=== PATIENT | male | born 2000 | race Hispanic/Latino ===

== ENCOUNTER 2021-03-03 08:28 | Emergency (ER) | payer SELFPAY ==
[2021-03-03] MEDS ORDERED: EPINEPHrine 1 MG/10 ML Abboject SYRINGE ONE (10:37)
[2021-03-03] MEDS ORDERED: Lidocaine 1% 20 ML MDV ONE (10:37)
[2021-03-03] MEDS ORDERED: Triple Antibiotic Oint 1 GM Packet ONE (12:30)
== END 2021-03-03 12:50 | disposition home or self-care (01) ==
LOC: MADERS 08:28
DX: S62.631A Displaced fracture of distal phalanx of left index finger, initial encounter for closed fracture (principal); S61.211A Laceration without foreign body of left index finger without damage to nail, initial encounter; J30.2 Other seasonal allergic rhinitis; Z79.899 Other long term (current) drug therapy; W22.8XXA Striking against or struck by other objects, initial encounter
CPT/HCPCS: 11730; J0171

== ENCOUNTER 2021-12-13 10:33 | Emergency (ER) | payer OTHER ==
[2021-12-13] MEDS ORDERED: Boostrix 0.5 ML (Tdap) VIAL ONE (10:57)
[2021-12-13] MEDS ORDERED: Ibuprofen 800 MG TAB ONE (10:57)
[2021-12-13] MEDS ORDERED: Lidocaine 1% (PF) 30 ML VIAL ONE (10:57)
[2021-12-13] MEDS ORDERED: Bacitracin 1 PK ONE (10:57)
[2021-12-13] MEDS ORDERED: Cephalexin 500 MG CAP ONE (10:57)
== END 2021-12-13 11:49 | disposition home or self-care (01) ==
LOC: MADERS 10:33
DX: S67.196A Crushing injury of right little finger, initial encounter (principal); S61.226A Laceration with foreign body of right little finger without damage to nail, initial encounter; W23.0XXA Caught, crushed, jammed, or pinched between moving objects, initial encounter; Y92.69 Other specified industrial and construction area as the place of occurrence of the external cause; Z23 Encounter for immunization
CPT/HCPCS: 12001; 90471; 90715; J2001

== ENCOUNTER 2021-12-24 15:21 | Emergency (ER) | payer MEDICAID, SELFPAY | END 2021-12-24 16:15 | disposition home or self-care (01) | LOC: MADERS 15:21 | DX: T81.30XA Disruption of wound, unspecified, initial encounter (principal); S61.217D Laceration without foreign body of left little finger without damage to nail, subsequent encounter ==

== ENCOUNTER 2023-05-08 03:28 | Emergency (ER) | payer MEDICAID, SELFPAY ==
[2023-05-08] MEDS ORDERED: Ondansetron ODT 4 MG TAB ONE (04:01)
== END 2023-05-08 04:26 | disposition home or self-care (01) ==
LOC: MADERS 03:28
DX: K52.9 Noninfective gastroenteritis and colitis, unspecified (principal)
CPT/HCPCS: 99283; Q0162